=== PATIENT | female | born 1990 | race Asian ===

== ENCOUNTER 2024-02-22 20:26 | Emergency (ER) | payer OTHER ==
[~2024-02-22] VITALS: Ht 157.5 cm; Wt 73.0 kg
[2024-02-22 20:43] VITALS: BP 121/86; PULSE 86; RESP 17; TEMP 98.3; O2SAT 96
[2024-02-22] MEDS ORDERED: ACET-2708 MT (22:21)
[2024-02-22] MEDS: ACETAMINOPHEN 325MG TABLET PO ONE (22:42)
== END 2024-02-22 22:50 | disposition home or self-care (01) ==
LOC: ER 20:26
DX: S93.401A Sprain of unspecified ligament of right ankle, initial encounter (principal); W18.30XA Fall on same level, unspecified, initial encounter; Y93.89 Activity, other specified; Y92.89 Other specified places as the place of occurrence of the external cause; Y99.8 Other external cause status
CPT/HCPCS: 73610; 99283; Z7610 ×2